=== PATIENT | male | born 1960 | race Caucasian/White ===

== ENCOUNTER 2021-10-06 08:55 | Outpatient (CLI) | payer BC ==
[~2021-10-06] VITALS: Ht 177.8 cm; Wt 99.9 kg
[2021-10-06 09:28] VITALS: BP 118/65
[2021-10-06] MEDS ORDERED: EPINEPHrine INJECTION 1 MG/ML AMP IM PRN (09:30)
[2021-10-06] MEDS ORDERED: ONDANSETRON 4 MG/2 ML (SDV) Z0FRAN IV PRN (09:30)
[2021-10-06] MEDS ORDERED: diphenhydrAMINE 50 MG/ML INJ (BENADRYL) IV PRN (09:30)
[2021-10-06] MEDS ORDERED: ACETAMINOPHEN 500 MG TAB (TYLENOL) PO PRN (09:30)
[2021-10-06] MEDS ORDERED: BAMLANIVIMAB 700 MG/ETESEVIMAB 1,400 MG IN NS IV ONE ×3 (09:30)
[2021-10-06 10:33] VITALS: BP 114/65
[2021-10-07] MEDS ORDERED: DOXY100T2 PO (21:05)
[2021-10-07] MEDS ORDERED: ONDA4TAB11 PO (21:05)
== END 2021-10-06 10:30 | disposition home or self-care (01) ==
LOC: EDSEX → INFUSION 08:55
PROVIDERS: ATTEND Internal Medicine
DX: U07.1 COVID-19 (principal)

== ENCOUNTER 2021-10-07 17:41 | Emergency (ER) | payer BC ==
[~2021-10-07] VITALS: Ht 177.8 cm; Wt 95.3 kg
[2021-10-07] MEDS ORDERED: LACTATED RINGERS 1,000 ML IV ONE (18:30)
[2021-10-07] MEDS ORDERED: ONDANSETRON 4 MG/2 ML (SDV) Z0FRAN IVP ONE (19:00)
[2021-10-07 19:09] LABS: BILIRUBIN,URINE NEGATIVE (NEGATIVE); CLARITY,URINE CLEAR; COLOR,URINE YELLOW; GLUCOSE, URINE (UA) 3+ (NEGATIVE); KETONES,URINE 2+ (NEGATIVE); LEUKOCYTE ESTERASE ,URINE NEGATIVE (NEGATIVE); NITRITE,URINE NEGATIVE (NEGATIVE); PROTEIN,URINE TRACE (NEGATIVE)
[2021-10-07 19:10] LABS: BASOPHILS % (AUTO) 0 % (0-10); EOSINOPHILS % (AUTO) 0 % (0-10); HEMATOCRIT 52 % (40-54); HEMOGLOBIN 17.5 g/dL (13.3-17.7); LYMPHOCYTES # (AUTO) 1.7 10^3/uL (1.0-4.0); LYMPHOCYTES % (AUTO) 29 % (12-44); MEAN CORPUSCULAR HEMOGLOBIN 31 pg (25-34); MEAN CORPUSCULAR HGB CONC 34 g/dL (32-36); MEAN CORPUSCULAR VOLUME 93 fL (80-99); MEAN PLATELET VOLUME 11.1 fL (9.0-12.2); MONOCYTES # (AUTO) 0.5 10^3/uL (0.0-1.0); MONOCYTES % (AUTO) 8 % (0-12); NEUTROPHILS # (AUTO) 3.5 10^3/uL (1.8-7.8); NEUTROPHILS % (AUTO) 61 % (42-75); PLATELET COUNT 125 10^3/uL (130-400); WHITE BLOOD COUNT 5.8 10^3/uL (4.3-11.0)
[2021-10-07 19:19] LABS: AMORPHOUS SEDIMENT,UR RARE AMOR URATES /LPF; BACTERIA,URINE NEGATIVE /HPF; HYALINE CASTS, URINE 0-2 /LPF
[2021-10-07 19:27] LABS: FIBRIN DEGRADATION PRODUCTS 1.27 UG/ML (0.00-0.49); INR 0.9 (0.8-1.4); PROTHROMBIN TIME PATIENT 12.3 SEC (12.2-14.7)
[2021-10-07 19:31] LABS: AMPHETAMINE SCREEN, URINE NEGATIVE (NEGATIVE); BARBITURATE SCREEN URINE NEGATIVE (NEGATIVE); BENZODIAZEPINES SCREEN URINE NEGATIVE (NEGATIVE); CANNABINOID SCREEN, URINE NEGATIVE (NEGATIVE); COCAINE SCREEN URINE NEGATIVE (NEGATIVE); METHADONE STAT NEGATIVE (NEGATIVE); METHAMPHETAMINE SCREEN URINE S NEGATIVE (NEGATIVE); OPIATE SCREEN URINE POSITIVE (NEGATIVE); OXYCODONE STAT NEGATIVE (NEGATIVE); PROPOXYPHENE STAT NEGATIVE (NEGATIVE); TRICYCLIC ANTIDEPRESSANTS SCRE NEGATIVE (NEGATIVE)
[2021-10-07 19:36] LABS: ERYTHROCYTE SEDIMENTATION RATE 37 MM/HR (0-30)
--- NOTE | 2021-10-07 19:39 | Diagnostic Imaging Report ---
INDICATION: Pneumonia. FINDINGS: There is diffuse bilateral airspace disease. Heart size is normal. No pleural effusion or pneumothorax. Mediastinum is unremarkable. IMPRESSION: Diffuse bilateral airspace disease suspect for atypical pneumonia possibly COVID. Some underlying central pulmonary venous congestion cannot be excluded. Dictated by: Dictated on workstation # [id number]
[2021-10-07 19:51] LABS: ALANINE AMINOTRANSFERASE 27 U/L (0-55); ALBUMIN 3.5 GM/DL (3.2-4.5); ALKALINE PHOSPHATASE 115 U/L (40-136); BILIRUBIN,TOTAL 0.7 MG/DL (0.1-1.0); BUN/CREATININE RATIO 17; CALCIUM 9.3 MG/DL (8.5-10.1); CARBON DIOXIDE 23 MMOL/L (21-32); CHLORIDE 99 MMOL/L (98-107); CREATININE SERUM 1.02 MG/DL (0.60-1.30); GFR ESTIMATED 74; GLUCOSE 375 MG/DL (70-105); MAGNESIUM 1.9 MG/DL (1.6-2.4); POTASSIUM 4.5 MMOL/L (3.6-5.0); SODIUM 139 MMOL/L (135-145); TOTAL PROTEIN 7.5 GM/DL (6.4-8.2)
[2021-10-07] MEDS ORDERED: HOLD METFORMIN - RECEIVED CONTRAST 20 ML VIAL IV SCH (20:15)
[2021-10-07] MEDS ORDERED: IOHEXOL 350 MG/ML 100 ML (OMNIPAQUE 350) VIAL IV ONE (20:15)
[2021-10-07] MEDS ORDERED: NS 100 ML (IVPB) BAG IV ONE (20:15)
--- NOTE | 2021-10-07 20:50 | ED Respiratory ---
General Chief Complaint: COVID19 Suspect/Confirmed Stated Complaint: WEAK Nursing Triage Note: PT AMB TO [facility] W REPORTS OF TESTING COVID + 5 DAYS AGO, SYMPTOMS X12 DAYS. PT C/O BODY ACHES, NO ENERGY, FATIGUE, DIARRHEA, N/V, INABILITY TO EAT, SORE ABD, CHILLS, AND COUGH. PT RECIEVED INFUSION YESTERDAY. PT A&OX4. Source: patient History of Present Illness Date Seen by Provider: Oct 07, 2021 Time Seen by Provider: 18:20 Initial Comments PT ARRIVES VIA POV FROM HOME PT HAS BEEN ILL WITH COVID SYMPTOMS X 12 DAYS WENT TO [facility] LAST Sunday10/02/21 AND TESTED + FOR COVID-19 PT HAD ANTIBODY INFUSION YESTERDAY C/O NO ENERGY, FATIGUE C/O NON-PRODUCTIVE COUGH C/O SUBJECTIVE CHILLS--HAS NOT TAKEN TEMP AT HOME C/O DECREASED APPETITE, BUT IS STILL DRINKING FLUIDS AND VOIDING NORMALLY STATES HE HAS ONLY EATEN 2 SANDWICHES IN THE LAST 12 DAYS, NO OTHER FOOD INTAKE. 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 PT IS INSULIN DEPENDENT DIABETIC Allergies and Home Medications Allergies Coded Allergies: No Known Drug Allergies (Unverified , 10/06/21) Patient Home Medication List Home Medication List Reviewed: Yes Review of Systems Review of Systems Constitutional: chills, malaise, weakness EENTM: no symptoms reported Respiratory: see HPI, cough; No short of breath Cardiovascular: no symptoms reported; No chest pain Gastrointestinal: see HPI; No abdominal pain; diarrhea, loss of appetite, nausea, vomiting Genitourinary: no symptoms reported; No decreased output Musculoskeletal: see HPI (BODY ACHES) Skin: no symptoms reported Psychiatric/Neurological: No Symptoms Reported; Denies Headache Hematologic/Lymphatic: No Symptoms Reported Immunological/Allergic: no symptoms reported Past Brwvkum-[id number]-[id number] Hx Patient Social History Tobacco Use?: No Use of E-Cig and/or Vaping dev: No Substance use?: No Alcohol Use?: Yes Alcohol Frequency: Rarely Immunizations Up To Date Influenza Vaccine Up-to-Date: No; Not Current First/Initial COVID19 Vaccinat: NONE Second COVID19 Vaccination Wiley: NONE Third COVID19 Vaccination Date: NONE COVID19 Vaccine Dressing Room Porter: NONE Past Medical History Surgery/Hospitalization HX: PMH: DIABETES, PANCREATITIS SX: R SHOULDER, R ANKLE, TIERRA, PANCREAS Surgeries: Yes Gallbladder, Orthopedic, Pancreatic Cardiac: No Neurological: No Genitourinary: No Gastrointestinal: Yes Pancreatitis Musculoskeletal: Yes (RIGHT SHOULDER AND RIGHT ANKLE SURGERIES) Endocrine: Yes Diabetes, Insulin dep HEENT: No Cancer: No Psychosocial: No Integumentary: No Blood Disorders: No Family Medical History SOCIAL HISTORY: -DENIES SMOKING -OCCASIONAL ETOH -DENIES DRUG USE PAST SURGICAL HISTORY: -PANCREAS SURGERY X 3 -RIGHT SHOULDER SURGERY -RIGHT ANKLE SURGERY -CHOLECYSTECTOMY Physical Exam Vital Signs - First Documented 10/07/21 18:15 Temp 36.9 Pulse 87 Resp 22 B/P (MAP) 148/89 (108) Pulse Ox 96 O2 Delivery Nasal Cannula O2 Flow Rate 2.00 Capillary Refill : Less Than 3 Seconds Height: '" Weight: lbs. oz. 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, no motor/sensory deficits, alert, normal mood/affect, oriented x 3 Skin: normal color, warm/dry Focused Exam Sepsis Stage: Ruled Out Possible Source: Pulmonary Lactate Level 10/07/21 19:00: Lactic Acid Level 1.83 Time of Focused Exam: 21:00 Respiratory: Normal Breath Sounds, No Accessory Muscle Use, No Respiratory Distress Cardiovascular: Regular Rate, Rhythm, No Murmur, Normal Peripheral Pulses Capillary Refill: Less Than 3 Seconds Skin: normal color, warm/dry Lactic Acid Level Laboratory Tests Test 10/07/21 19:00 Lactic Acid Level 1.83 MMOL/L (0.50-2.00) Within 3hrs of presentation: Admin fluids, Blood cultures prior to ABX's, Focus exam, Lactate level, Other (NO ANTIBIOTICS, IS COVID PNEUMONIA) Progress/Results/Core Measures Suspected Sepsis SIRS Temperature: Pulse: 87 Respiratory Rate: 22 Laboratory Tests 10/07/21 19:00: White Blood Count 5.8 Blood Pressure 148 /89 Mean: 108 10/07/21 19:00: Lactic Acid Level 1.83 Laboratory Tests 10/07/21 19:00: Creatinine 1.02, INR Comment 0.9, Platelet Count 125L, Total Bilirubin 0.7 Results/Orders Lab Results Laboratory Tests Test 10/07/21 18:50 10/07/21 19:00 10/07/21 22:35 Range/Units Urine Color YELLOW Urine Clarity CLEAR Urine pH 6.0 5-9 Urine Specific [place] 1.020 1.016-1.022 Urine Protein TRACE H NEGATIVE Urine Glucose (UA) 3+ H NEGATIVE Urine Ketones 2+ H NEGATIVE Urine Nitrite NEGATIVE NEGATIVE Urine Bilirubin NEGATIVE NEGATIVE Urine Urobilinogen 0.2 < = 1.0 MG/DL Urine Leukocyte Esterase NEGATIVE NEGATIVE Urine RBC (Auto) NEGATIVE NEGATIVE Urine RBC NONE /HPF Urine WBC NONE /HPF Urine Crystals PRESENT H /LPF Urine Amorphous Sediment RARE ESHA URATES H /LPF Urine Bacteria NEGATIVE /HPF Urine Casts NONE /LPF Urine Hyaline Casts 0-2 H /LPF Urine Mucus NEGATIVE /LPF Urine Culture Indicated NO Urine Opiates Screen POSITIVE H NEGATIVE Urine Oxycodone Screen NEGATIVE NEGATIVE Urine Methadone Screen NEGATIVE NEGATIVE Urine Propoxyphene Screen NEGATIVE NEGATIVE Urine Barbiturates Screen NEGATIVE NEGATIVE Ur Tricyclic Antidepressants Screen NEGATIVE NEGATIVE Urine Phencyclidine Screen NEGATIVE NEGATIVE Urine Amphetamines Screen NEGATIVE NEGATIVE Urine Methamphetamines Screen NEGATIVE NEGATIVE Urine Benzodiazepines Screen NEGATIVE NEGATIVE Urine Cocaine Screen NEGATIVE NEGATIVE Urine Cannabinoids Screen NEGATIVE NEGATIVE White Blood Count 5.8 4.3-11.0 10^3/uL Red Blood Count 5.57 H 4.30-5.52 10^6/uL Hemoglobin 17.5 13.3-17.7 g/dL Hematocrit 52 40-54 % Mean Corpuscular Volume 93 80-99 fL Mean Corpuscular Hemoglobin 31 25-34 pg Mean Corpuscular Hemoglobin Concent 34 32-36 g/dL Red Cell Distribution Width 12.7 10.0-14.5 % Platelet Count 125 L 130-400 10^3/uL Mean Platelet Volume 11.1 9.0-12.2 fL Immature Granulocyte % (Auto) 2 % Neutrophils (%) (Auto) 61 42-75 % Lymphocytes (%) (Auto) 29 12-44 % Monocytes (%) (Auto) 8 0-12 % Eosinophils (%) (Auto) 0 0-10 % Basophils (%) (Auto) 0 0-10 % Neutrophils # (Auto) 3.5 1.8-7.8 10^3/uL Lymphocytes # (Auto) 1.7 1.0-4.0 10^3/uL Monocytes # (Auto) 0.5 0.0-1.0 10^3/uL Eosinophils # (Auto) 0.0 0.0-0.3 10^3/uL Basophils # (Auto) 0.0 0.0-0.1 10^3/uL Immature Granulocyte # (Auto) 0.1 0.0-0.1 10^3/uL Erythrocyte Sedimentation Rate 37 H 0-30 MM/HR Prothrombin Time 12.3 12.2-14.7 SEC INR Comment 0.9 0.8-1.4 Activated Partial Thromboplast Time 37 H 24-35 SEC D-Dimer 1.27 H 0.00-0.49 UG/ML Sodium Level 139 135-145 MMOL/L Potassium Level 4.5 3.6-5.0 MMOL/L Chloride Level 99 98-107 MMOL/L Carbon Dioxide Level 23 21-32 MMOL/L Anion Gap 17 H 5-14 MMOL/L Blood Urea Nitrogen 17 7-18 MG/DL Creatinine 1.02 0.60-1.30 MG/DL Estimat Glomerular Filtration Rate 74 BUN/Creatinine Ratio 17 Glucose Level 375 H 70-105 MG/DL Lactic Acid Level 1.83 0.50-2.00 MMOL/L Calcium Level 9.3 8.5-10.1 MG/DL Corrected Calcium 9.7 8.5-10.1 MG/DL Magnesium Level 1.9 1.6-2.4 MG/DL Total Bilirubin 0.7 0.1-1.0 MG/DL Aspartate Amino Transf (AST/SGOT) 34 5-34 U/L Alanine Aminotransferase (ALT/SGPT) 27 0-55 U/L Alkaline Phosphatase 115 40-136 U/L Lactate Dehydrogenase 492 H 125-220 U/L C-Reactive Protein High Sensitivity 10.39 H 0.00-0.50 MG/DL Total Protein 7.5 6.4-8.2 GM/DL Albumin 3.5 3.2-4.5 GM/DL Procalcitonin 0.03 <0.10 NG/ML Serum Alcohol < 10 <10 MG/DL Glucometer 276 H 70-110 MG/DL My Orders Orders - DOROTHEA DANIELLE DO Cbc With Automated Diff (10/07/21 18:19) Comprehensive Metabolic Panel (10/07/21 18:19) Fibrin Degradation Products (10/07/21 18:19) Procalcitonin (Pct) (10/07/21 18:19) Hs C Reactive Protein (10/07/21 18:19) Erythrocyte Sedimentation Rate (10/07/21 18:19) LDH (10/07/21 18:19) Blood Culture (10/07/21 18:19) Ekg Tracing (10/07/21 18:19) Chest 1 View, Ap/Pa Only (10/07/21 18:19) Urinalysis (10/07/21 18:19) Urine Culture (10/07/21 18:19) Protime With Inr (10/07/21 18:19) Partial Thromboplastin Time (10/07/21 18:19) Ed Iv/Invasive Line Start (10/07/21 18:19) Ed Iv/Invasive Line Start (10/07/21 18:19) Vital Signs Adult Sepsis Patie Q15M (10/07/21 18:19) O2 (10/07/21 18:19) Remove Rings In Anticipation O (10/07/21 18:19) Lactated Ringers (Lr 1000 Ml Iv Solution (10/07/21 18:30) Ekg Tracing (10/07/21 18:19) Monitor-Rhythm Ecg Trace Only (10/07/21 18:19) Magnesium (10/07/21 18:19) Covid-19 External Lab Results (10/07/21 18:21) Ondansetron Injection (Zofran Injectio (10/07/21 19:00) Alcohol (10/07/21 18:57) Drug Screen Stat (Urine) (10/07/21 18:57) Ct Angio Chest W (10/07/21 19:52) Iohexol Injection (Omnipaque 350 Mg/Ml 1 (10/07/21 20:15) Received Contrast (Hold Metformin- Contr (10/07/21 20:15) Ns (Ivpb) (Sodium Chloride 0.9% Ivpb Bag (10/07/21 20:15) Insulin (Regular) Human (Novolin R (Per (10/07/21 21:15) Ed Iv/Invasive Line Start (10/07/21 21:05) Ns Iv 1000 Ml (Sodium Chloride 0.9%) (10/07/21 21:15) Ceftriaxone 1 Gm Pre-Mix (Rocephin 1 Gm (10/07/21 21:05) Rx-Ondansetron Po (Rx-Zofran Po) (10/07/21 21:05) Dexamethasone Injection (Decadron Inje (10/07/21 21:30) Enoxaparin Injection (Lovenox Injection) (10/07/21 21:30) Insulin Determir (Per Unit) (Levemir (Pe (10/07/21 21:30) Lactic Acid Analyzer (10/07/21 21:37) Medications Given in ED Current Medications Medications Dose Ordered Sig/Yecenia Route Start Time Stop Time Status Last Admin Dose Admin Dexamethasone Sodium Phosphate 10 mg ONCE ONCE IV 10/07/21 21:30 10/07/21 21:37 DC 10/07/21 21:32 10 MG Enoxaparin Sodium 100 mg ONCE ONCE SC 10/07/21 21:30 10/07/21 21:37 DC 10/07/21 21:32 100 MG Insulin Detemir 25 unit ONCE ONCE SQ 10/07/21 21:30 10/07/21 21:37 DC 10/07/21 21:32 25 UNIT Insulin Human Regular 10 unit ONCE ONCE IV 10/07/21 21:15 10/07/21 21:16 DC 10/07/21 21:31 10 UNIT Iohexol 100 ml ONCE ONCE IV 10/07/21 20:15 10/07/21 20:16 DC 10/07/21 20:46 79 ML Lactated Ringer's 1,000 ml @ 0 mls/hr Q0M ONCE IV 10/07/21 18:30 10/07/21 18:31 DC 10/07/21 19:05 0 MLS/HR Ondansetron HCl 8 mg ONCE ONCE IVP 10/07/21 19:00 10/07/21 19:01 DC 10/07/21 19:05 8 MG Sodium Chloride 100 ml ONCE ONCE IV 10/07/21 20:15 10/07/21 20:16 DC 10/07/21 20:46 80 ML Vital Signs/I&O 10/07/21 10/07/21 10/07/21 18:15 18:17 22:40 Temp 36.9 Pulse 87 92 Resp 22 20 B/P (MAP) 148/89 (108) 143/97 Pulse Ox 96 96 96 O2 Delivery Nasal Cannula Nasal Cannula Nasal Cannula O2 Flow Rate 2.00 2.00 2.00 10/08/21 00:00 Intake Total 1050 ml Balance 1050 ml Capillary Refill : Less Than 3 Seconds Blood Pressure Mean: 108 Progress Note : Progress Note PLACED IN ISOLATION ROOM PPE WORN AT ALL TIMES NO COUGH NO DYSPNEA NO FEVER NO HYPOTENSION OR TACHYCARDIA GIVEN IV FLUIDS AND ZOFRAN FOR NAUSEA GIVEN REGURAL INSULIN IV AND LANTUS SUB Q GIVEN LOVENOX GIVEN DECADRON PT WITH O2 SAT 90% ON ARRIVAL, PLACED ON O2 AT 2L/NC AND SATS UP TO 95% O2 SATS CONSISTENTLY DROPPED TO 88-89% WHEN ON ROOM AIR, THEN UP TO MID 90'S ON O2 AT 2L/NC. ECG Initial ECG Impression Date: Oct 07, 2021 Initial ECG Impression Time: 18:34 Initial ECG Rate: 81 Initial ECG Rhythm: Normal Sinus Initial ECG Impression: Normal Initial ECG Comparisson: No Previous ECG Available Diagnostic Imaging Comments CXR--PER RADIOLOGIST REPORT AT 194 FINDINGS: There is diffuse bilateral airspace disease. Heart size is normal. No pleural effusion or pneumothorax. Mediastinum is unremarkable. IMPRESSION: Diffuse bilateral airspace disease suspect for atypical pneumonia possibly COVID. Some underlying central pulmonary venous congestion cannot be excluded. CT CHEST ANGIOGRAM--PER RADIOLOGIST REPORT AT 2058 FINDINGS: There are diffuse bilateral groundglass infiltrates suspect for atypical pneumonia, likely COVID. There is no pleural or pericardial fluid. There is no pneumothorax. The thoracic aorta is normal in caliber without evidence of dissection. There are no definitive filling defects within the pulmonary arteries to suggest pulmonary embolism. No pathologically enlarged adenopathy in the chest. The visualized intra-abdominal structures are unremarkable. IMPRESSION: Diffuse bilateral groundglass infiltrates suspect for atypical pneumonia likely COVID. No evidence of pulmonary embolism, aortic aneurysm or dissection. Reviewed: Reviewed by Nm Departure Communication (Admissions) [id number]--SPOKE WITH DR. HUFFMAN, HOSPITALIST, SHE WILL ADMIT THE PATIENT AT [facility], DUE TO LACK OF BED AVAILABILITY HERE. NO ADDITIONAL RECOMMENDATIONS AT THIS TIME. Impression Primary Impression: Pneumonia due to COVID-19 virus Additional Impressions: IDDM (insulin dependent diabetes mellitus) Acute respiratory failure due to COVID-19 Disposition: SHT-TRM HOSP Condition: Stable Transfer Transfer Reason: Diversion Transfer Facility: [facility] Method of Transfer: EMS Departure-Patient Inst. Referrals: NO,LOCAL PHYSICIAN (PCP/Family) Primary Care Physician Add. Discharge Instructions: All discharge instructions reviewed with patient and/or family. Voiced understanding. DOROTHEA DANIELLE DO Oct 07, 2021 20:50
--- NOTE | 2021-10-07 20:54 | Diagnostic Imaging Report ---
PROCEDURE: CT angiography of the chest with contrast. TECHNIQUE: Multiple contiguous axial images were obtained through the chest after uneventful bolus administration of intravenous contrast. 3D reconstructed CTA MIP acquisitions were also performed. Auto Exposure Controls were utilized during the CT exam to meet ALARA standards for radiation dose reduction. INDICATION: Chest pain and shortness of breath. FINDINGS: There are diffuse bilateral groundglass infiltrates suspect for atypical pneumonia, likely COVID. There is no pleural or pericardial fluid. There is no pneumothorax. The thoracic aorta is normal in caliber without evidence of dissection. There are no definitive filling defects within the pulmonary arteries to suggest pulmonary embolism. No pathologically enlarged adenopathy in the chest. The visualized intra-abdominal structures are unremarkable. IMPRESSION: Diffuse bilateral groundglass infiltrates suspect for atypical pneumonia likely COVID. No evidence of pulmonary embolism, aortic aneurysm or dissection. Dictated by: Dictated on workstation # [id number]
[2021-10-07] MEDS ORDERED: DOXY100T2 PO (21:05)
[2021-10-07] MEDS ORDERED: cefTRIAXone 1 GM PRE-MIX 50 ML IV STA (21:05)
[2021-10-07] MEDS ORDERED: RX-ONDANSETRON 4 MG ODT (ZOFRAN) PPK #4 PO STA (21:05)
[2021-10-07] MEDS ORDERED: ONDA4TAB11 PO (21:05)
[2021-10-07] MEDS ORDERED: NS IV 1000 ML 1,000 ML IV SCH (21:15)
[2021-10-07] MEDS ORDERED: inSUlin (REGULAR) HUMAN 1 UNIT/0.01 ML (CHARGE PER UNIT) IV ONE (21:15)
[2021-10-07] MEDS ORDERED: ENOXAPARIN 100 MG/1 ML (LOVENOX) SYR SC ONE (21:30)
[2021-10-07 22:40] VITALS: BP 143/97
== END 2021-10-07 22:40 | disposition short-term general hospital (02) ==
LOC: EDUNIT# 17:41 → ER 17:42
DX: U07.1 COVID-19 (principal); J12.82 Pneumonia due to coronavirus disease 2019; E11.9 Type 2 diabetes mellitus without complications; J96.00 Acute respiratory failure, unspecified whether with hypoxia or hypercapnia; Z79.4 Long term (current) use of insulin
CPT/HCPCS: 36415; 71045; 71275; 80053; 80306; 80320; 81000; 82947; 83605; 83615; 83735; 84145; 85025; 85379; 85610; 85652; 85730; 86141; 87040; 87088; 93005; 93041